=== PATIENT | male | born 1975 | race Caucasian/White ===

== ENCOUNTER 2018-07-17 19:51 | Emergency (ER) | payer OTHER ==
[2018-07-17] MEDS ORDERED: Lidocaine 1% with EPINEPHrine 1:100,000 50 ML MDV SUBCUT STA (20:13)
[2018-07-17] MEDS ORDERED: HYDROmorphone 1 MG/ML Syringe IM ONE (20:23)
--- NOTE | 2018-07-17 20:32 | EDM.PDOC ---
ED HPI GENERAL MEDICAL PROBLEM - General Chief Complaint: Upper Extremity Injury/Pain Stated Complaint: SUDDEN ELBOW PAIN Time Seen by Provider: 07/17/18 20:15 Source of Information: Reports: Patient History Limitations: Reports: No Limitations - History of Present Illness INITIAL COMMENTS - FREE TEXT/NARRATIVE: 43 yo male started with some R elbow tenderness this morning that has progressed so that his R olecranon bursa is not red, swollen and very tender. No self treatment. No fever or chills. No hx of open wound in the area. No hx of gout. 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) (none) right elbow Pain Score (Numeric/FACES): 8 - Related Data Allergies Allergy/AdvReac Type Severity Reaction Status Date / Time No Known Allergies Allergy Verified 07/17/18 20:08 Home Meds: Home Meds LORazepam [Ativan] 0.5 mg PO BID PRN 07/17/18 [History] Past Medical History Musculoskeletal History: Reports: Fracture Psychiatric History: Reports: Anxiety, Depression Social & Family History - Tobacco Use Smoking Status *Q: Current Some Day Smoker Years of Tobacco use: 20 Packs/Tins Daily: 0.1 - Caffeine Use Caffeine Use: Reports: Coffee, Energy Drinks, Soda, Tea - Recreational Drug Use Recreational Drug Use: No Review of Systems - Review of Systems Review Of Systems: See Below Constitutional: Reports: No Symptoms Musculoskeletal: Reports: Joint Pain (R elbow) Skin: Reports: Erythema (of R elbow). Denies: Bruising, Wound Neurological: Reports: No Symptoms ED EXAM, GENERAL - Physical Exam Exam: See Below Exam Limited By: No Limitations General Appearance: Alert, WD/WN, Mild Distress Extremities: Limited Range of Motion (due to pain), Other (mild R elbow pain, but exquisite tenderness of the R olecranon bursa with swelling and erythema. No wounds near this site. ). No: Normal Inspection, Normal Range of Motion, Non -Tender, No Pedal Edema Neurological: Alert, Oriented, CN II-XII Intact, Normal Cognition, No Motor/ Sensory Deficits Psychiatric: Normal Affect, Normal Mood Skin Exam: Warm, Dry, Intact, No Rash, Erythema (R olecranon only) ED TRAUMA EXTREMITY PROCEDURES - I&D Site: R olecranon bursa Skin Prep: Providone-Iodine (Betadine) Local Anesthesia: Lidocaine: 1% with EPI Local Anesthetic Volume: 2cc Area Incised With: Needle Drainage: Bloody (translucent) Probed to Break Up Loculations: No Complications: No Progress/Comments: 1.5 ml of fluid aspirated. Sent for culture and crystal analysis. Course - Vital Signs Last Recorded V/S: Last Vital Signs Temp 36.6 C 07/17/18 20:12 Pulse 71 07/17/18 20:12 Resp 16 07/17/18 20:12 BP 134/93 H 07/17/18 20:12 Pulse Ox 97 07/17/18 20:12 - Orders/Labs/Meds Orders: Active Orders 24 hr Category Date Time Status CRYSTAL,SYNOVIAL/JOINT FL Routine Lab 07/17/18 20:29 Received CULTURE BODY FLUID + SMEAR [RM] Stat Lab 07/17/18 20:30 Results Meds: Medications Discontinued Medications Generic Name Dose Route Start Last Admin Trade Name Narayan PRN Reason Stop Dose Admin Hydromorphone HCl 1 mg 07/17/18 20:23 07/17/18 20:36 Dilaudid IM 07/17/18 20:24 1 mg ONETIME ONE Administration Ketorolac Tromethamine 60 mg 07/17/18 20:59 07/17/18 21:11 Toradol IM 07/17/18 21:00 60 mg ONETIME ONE Administration Lidocaine/Epinephrine 3 ml 07/17/18 20:13 Xylocaine 1% With Epinephrine 1:100,000 SUBCUT 07/17/18 20:14 NOW STA Departure - Departure Time of Disposition: 21:27 Disposition: Home, Self-Care 01 Condition: Fair Clinical Impression: Olecranon bursitis Qualifiers: Laterality: right Qualified Code(s): M70.21 - Olecranon bursitis, right elbow - Discharge Information *PRESCRIPTION DRUG MONITORING PROGRAM REVIEWED*: No *COPY OF PRESCRIPTION DRUG MONITORING REPORT IN PATIENT ELENA: No Instructions: Elbow Bursitis, [id number] Referrals: PCP,None [Primary Care Provider] - Forms: ED Department Discharge Additional Instructions: Take cephalexin as directed at least until you culture comes back. Take Aleve( naproxen) 2 every 8 hrs with food. Take Percocet as needed for pain relief. Recheck on Friday with your primary care provider. Return here if a lot worse in the interim. - My Orders Last 24 Hours: My Active Orders 07/17/18 20:29 CRYSTAL,SYNOVIAL/JOINT FL Routine 07/17/18 20:30 CULTURE BODY FLUID + SMEAR [RM] Stat - Assessment/Plan Last 24 Hours: My Active Orders 07/17/18 20:29 CRYSTAL,SYNOVIAL/JOINT FL Routine 07/17/18 20:30 CULTURE BODY FLUID + SMEAR [RM] Stat
[2018-07-17] MEDS ORDERED: Ketorolac 60 MG/2 ML SDV IM ONE (20:59)
== END 2018-07-17 21:51 | disposition home or self-care (01) ==
LOC: JP.ED 19:51
DX: M70.21 Olecranon bursitis, right elbow (principal); F41.9 Anxiety disorder, unspecified; F32.9 Major depressive disorder, single episode, unspecified; F17.210 Nicotine dependence, cigarettes, uncomplicated; Z79.899 Other long term (current) drug therapy
CPT/HCPCS: 20605; 87070; 87077; 87186; 87205; 89060; 96372; 99283; J1170; J1885

== ENCOUNTER 2022-02-04 01:59 | Emergency (ER) | payer MEDICAID ==
[2022-02-04] MEDS ORDERED: HYDROmorphone 1 MG/ML Syringe IVPUSH ONE (02:25)
[2022-02-04] MEDS ORDERED: Ketorolac 30 MG/ML SDV IVPUSH ONE (02:25)
== END 2022-02-04 02:49 | disposition home or self-care (01) ==
LOC: JP.ED 01:59
DX: M54.50 Low back pain, unspecified (principal)
CPT/HCPCS: 96374; 96375; 99283; J1170; J1885

== ENCOUNTER 2024-10-25 05:29 | Emergency (ER) | payer OTHER | END 2024-10-25 06:16 | disposition home or self-care (01) | LOC: JP.ED 05:29 | DX: M54.50 Low back pain, unspecified (principal) | CPT/HCPCS: 96372; 99283; A9270; J1171 ==

== ENCOUNTER 2024-10-25 16:40 | Emergency (ER) | payer OTHER ==
[2024-10-25] MEDS: Ketorolac 30 MG/ML SDV IM ONE (18:22)
== END 2024-10-25 19:57 | disposition home or self-care (01) ==
LOC: JP.ED 16:40
DX: M62.830 Muscle spasm of back (principal)
CPT/HCPCS: 36415; 82550; 96374; 99283; A9270; J1885